=== PATIENT | male | born 1945 ===

== ENCOUNTER 2018-06-06 08:50 | Day surgery (SDC) | payer MEDICARE, BC ==
[~2018-06-06 08:50] MED LIST: Acetaminophen 325 MG Tab PO PRN; Cataract Ophth Solution EYELF ONE; Moxifloxacin 0.5% Ophth Soln 3 ML Bottle EYELF ONE; Ondansetron 4 MG/2 ML SDV IVPUSH PRN; Phenylephrine 10% Ophth Soln 5 ML Bot EYELF ONE; Phenylephrine 10% Ophth Soln 5 ML Bot EYELF PRN; Povidone-Iodine 5% Sterile Ophth Soln 30 ML Bottle EYELF ONE; Proparacaine 0.5% Ophth Soln 15 ML Bottle EYELF ONE; Sodium Chloride 0.9% 10 ML Syringe FLUSH PRN; Timolol Maleate 0.5% Ophth Soln 5 ML Bottle EYELF ONE
[2018-06-06] MEDS ORDERED: Midazolam 1 MG/ML 2 ML SDV IV ONE (08:51)
[2018-06-06] MEDS ORDERED: Sodium Chloride 0.9% 10 ML Syringe IV ONE (08:51)
[2018-06-06] MEDS ORDERED: Dexamethasone 4 MG/ML SDV IV ONE (08:51)
[2018-06-06] MEDS ORDERED: Lidocaine 1% 30 ML SDV ONE (09:54)
[2018-06-06] MEDS ORDERED: Tetracaine HCl/PF 0.5% 4 ML Bottle EYELF ONE (09:55)
[2018-06-06] MEDS ORDERED: Povidone-Iodine 5% Sterile Ophth Soln 30 ML Bottle EYELF ONE (09:55)
[2018-06-06] MEDS ORDERED: Diclofenac Sodium 0.1% Ophth Soln 5 ML Bottle EYELF ONE (09:55)
[2018-06-06] MEDS ORDERED: Apraclonidine 0.5% Ophth Soln 5 ML Bot EYELF ONE (09:55)
[2018-06-06] MEDS ORDERED: Dexamethasone/Neomycin/Polymyxin B Ophth Oint 3.5 GM Tube EYELF ONE (09:55)
[2018-06-06] MEDS ORDERED: Vancomycin 500 MG SDV EYELF ONE (09:56)
[2018-06-06] MEDS ORDERED: Balanced Salt Solution Ophth Irrig 500 ML Bottle IOCULAR ONE (09:56)
[2018-06-06] MEDS ORDERED: Chondroitin Sulfate/Hyaluronate Sodium Ophth Inj 0.75 ML Syringe EYELF ONE (09:56)
--- NOTE | 2018-06-06 10:34 | OR ---
DATE: 06/06/2018 PREOPERATIVE DIAGNOSIS: Visually significant mixed cataract, left eye. POSTOPERATIVE DIAGNOSIS: Visually significant mixed cataract, left eye. PROCEDURE: Extracapsular cataract extraction with intraocular lens implant, left eye. ANESTHESIA: Topical/local MAC. COMPLICATIONS: None. INDICATION: Mr. Chaudhari was seen in the clinic. He has complained of blurred vision, difficulty with contrast, difficulty seeing street signs. Examination reveals visually significant mixed, nuclear, and cortical cataract. I explained options, I offered cataract surgery, and I explained risks including the potential for infection, retinal detachment, and loss of vision amongst others. We discussed implant options, and he has requested a toric implant. He understands that he may still require glasses for some activities, especially near work. He voiced an understanding with respect to risks and wished to proceed. OPERATIVE DESCRIPTION: After informed consent was obtained and the risks, benefits, and alternatives were explained, the patient was brought to the operative suite and topical anesthesia was administered. The patient was then prepped and draped in the sterile fashion, and attention was placed on the left eye. A sterile lid speculum was placed into the left eye to allow operative exposure. A full-thickness paracentesis was made in the temporal portion of the operative eye. Preservative-free lidocaine 0.1 mL was injected into the anterior chamber followed by viscoelastic. A full-thickness corneal incision was then made into the anterior chamber. A bent needle cystotome was used to create a small clarisse in the anterior capsule. The capsulorrhexis forceps was then used to create a 360-degree curvilinear capsulorrhexis. The nucleus was then removed using a phacoemulsification handpiece, and the remaining cortical material was then removed with irrigation and aspiration handpiece. Following removal of the cortical material, the capsular bag was then inspected and noted to be free of any holes or tears. Viscoelastic was then injected into the capsular bag, and the intraocular lens was inserted into the capsular bag. Implant was oriented to correspond with preoperative corneal lopez made with the patient in the upright position. The viscoelastic material was then removed from both the anterior and posterior chambers and from behind the IOL. The lens and capsular bag were then reinspected. The IOL was well centered and the capsular bag intact. The wound and paracentesis sites were inspected and hydrated with balanced saline solution. Both were found to be self-sealing. The intraocular pressure was assessed digitally and found to be within normal range. A good red reflex was noted at the completion of the procedure. No complications occurred during the operation. At the completion of the procedure, Maxitrol, Voltaren, and Iopidine drops were placed into the operative eye. A sterile eye shield was placed over the operative eye, and the patient was transported to the postoperative recovery area having tolerated the procedure well. Postoperative instructions were given along with a postoperative appointment. The patient was advised to call with any questions or concerns. [facility] /[id number]
== END 2018-06-06 10:44 | disposition home or self-care (01) ==
LOC: DL.SDS 08:50
PROVIDERS: ATTEND Ophthalmology
DX: H25.812 Combined forms of age-related cataract, left eye (principal); I10 Essential (primary) hypertension; F17.200 Nicotine dependence, unspecified, uncomplicated; E78.5 Hyperlipidemia, unspecified; M19.90 Unspecified osteoarthritis, unspecified site; N40.0 Benign prostatic hyperplasia without lower urinary tract symptoms; Z79.82 Long term (current) use of aspirin; Z79.899 Other long term (current) drug therapy; Z88.8 Allergy status to other drugs, medicaments and biological substances; Z91.048 Other nonmedicinal substance allergy status
CPT/HCPCS: 00142; A9270-GY; J1100; J2001; J2250; J3370; V2787

== ENCOUNTER 2018-06-13 07:27 | Day surgery (SDC) | payer MEDICARE, BC ==
[2018-06-13] MEDS ORDERED: Midazolam 1 MG/ML 2 ML SDV IV ONE (07:28)
[2018-06-13] MEDS ORDERED: Dexamethasone 4 MG/ML SDV IV ONE (07:28)
[2018-06-13] MEDS ORDERED: Sodium Chloride 0.9% 10 ML Syringe IV ONE (07:28)
[2018-06-13] MEDS: Proparacaine 0.5% Ophth Soln 15 ML Bottle EYERT ONE (07:54)
[2018-06-13] MEDS: Moxifloxacin 0.5% Ophth Soln 3 ML Bottle EYERT ONE (07:55)
[2018-06-13] MEDS: Povidone-Iodine 5% Sterile Ophth Soln 30 ML Bottle EYERT ONE ×2 (07:55→08:55)
[2018-06-13] MEDS: Sodium Chloride 0.9% 10 ML Syringe FLUSH PRN (07:56)
[2018-06-13] MEDS: Phenylephrine 10% Ophth Soln 5 ML Bot EYERT ONE (07:57)
[2018-06-13] MEDS: Timolol Maleate 0.5% Ophth Soln 5 ML Bottle EYERT ONE (07:58)
[2018-06-13] MEDS ORDERED: Ondansetron 4 MG/2 ML SDV IVPUSH PRN (08:00)
[2018-06-13] MEDS ORDERED: Phenylephrine 10% Ophth Soln 5 ML Bot EYERT PRN (08:00)
[2018-06-13] MEDS: Cataract Ophth Solution EYERT ONE (08:01)
[2018-06-13] MEDS: Tetracaine HCl/PF 0.5% 4 ML Bottle EYERT ONE (08:54)
[2018-06-13] MEDS: Lidocaine 1% 30 ML SDV ONE (08:55)
[2018-06-13] MEDS: Diclofenac Sodium 0.1% Ophth Soln 5 ML Bottle EYERT ONE (08:55)
[2018-06-13] MEDS: Dexamethasone/Neomycin/Polymyxin B Ophth Oint 3.5 GM Tube EYERT ONE ×2 (08:56)
[2018-06-13] MEDS: Apraclonidine 0.5% Ophth Soln 5 ML Bot EYERT ONE (08:56)
[2018-06-13] MEDS: Chondroitin Sulfate/Hyaluronate Sodium Ophth Inj 0.75 ML Syringe EYERT ONE (08:57)
[2018-06-13] MEDS: Balanced Salt Solution Ophth Irrig 500 ML Bottle IOCULAR ONE (08:57)
[2018-06-13] MEDS: Vancomycin 500 MG SDV EYERT ONE (08:57)
[2018-06-13] MEDS: Acetaminophen 325 MG Tab PO PRN (09:26)
--- NOTE | 2018-06-13 15:08 | OR ---
DATE: 06/13/2018 PREOPERATIVE DIAGNOSIS: Visually significant mixed cataract, right eye. POSTOPERATIVE DIAGNOSIS: Visually significant mixed cataract, right eye. PROCEDURE: Extracapsular cataract extraction with intraocular lens implant, right eye. ANESTHESIA: Topical/local MAC. COMPLICATIONS: None. INDICATION: Mr. Chaudhari was seen in the clinic. He has complained of blurred vision, difficulty with near and distance tasks. Difficulty reading. His examination reveals mixed nuclear and cortical cataract. Clinical examination also reveals [id number] astigmatism. I explained options. I offered cataract surgery and I explained risks preoperatively including the potential for infection, retinal detachment, loss of vision, need for additional surgery, amongst others. We discussed implant options. He has requested surgery with a Toric implant. He is comfortable wearing spectacle correction following surgery if necessary. OPERATIVE DESCRIPTION: After informed consent was obtained and the risks, benefits, and alternatives were explained, the patient was brought to the operative suite and topical anesthesia was administered. The patient was then prepped and draped in the sterile fashion and attention was placed on the right eye. A sterile lid speculum was placed into the right eye to allow operative exposure. A full-thickness paracentesis was made in the temporal portion of the operative eye. Preservative-free lidocaine 0.1 mL was injected into the anterior chamber followed by viscoelastic. A full-thickness corneal incision was then made into the anterior chamber. A bent needle cystotome was used to create a small clarisse in the anterior capsule. The capsulorrhexis forceps was then used to create a 360-degree curvilinear capsulorrhexis. The nucleus was then removed using a phacoemulsification handpiece and the remaining cortical material was then removed with irrigation and aspiration handpiece. Following removal of the cortical material, the capsular bag was then inspected and noted to be free of any holes or tears. Viscoelastic was then injected into the capsular bag and the intraocular lens was inserted into the capsular bag. The implant was oriented to correspond with preoperative corneal lopez made with the patient in the upright position. The viscoelastic material was then removed from both the anterior and posterior chambers and from behind the IOL. The lens and capsular bag were then reinspected. The IOL was well centered and the capsular bag intact. The wound and paracentesis sites were inspected and hydrated with balanced saline solution. Both were found to be self-sealing. The intraocular pressure was assessed digitally and found to be within normal range. A good red reflex was noted at the completion of the procedure. No complications occurred during the operation. At the completion of the procedure, Maxitrol, Voltaren, and Iopidine drops were placed into the operative eye. A sterile eye shield was placed over the operative eye and the patient was transported to the postoperative recovery area having tolerated the procedure well. Postoperative instructions were given along with a postoperative appointment. The patient was advised to call with any questions or concerns. [facility] /[id number]
== END 2018-06-13 10:07 | disposition home or self-care (01) ==
LOC: DL.SDS 07:27
PROVIDERS: ATTEND Ophthalmology
DX: H25.811 Combined forms of age-related cataract, right eye (principal); H52.209 Unspecified astigmatism, unspecified eye; E78.5 Hyperlipidemia, unspecified; I10 Essential (primary) hypertension; J18.9 Pneumonia, unspecified organism; M19.012 Primary osteoarthritis, left shoulder; M16.11 Unilateral primary osteoarthritis, right hip; N40.0 Benign prostatic hyperplasia without lower urinary tract symptoms; Z79.82 Long term (current) use of aspirin; Z79.899 Other long term (current) drug therapy; Z88.1 Allergy status to other antibiotic agents; Z88.8 Allergy status to other drugs, medicaments and biological substances; Z91.048 Other nonmedicinal substance allergy status; Z87.891 Personal history of nicotine dependence
CPT/HCPCS: 00142; 66984; A9270; J1100; J2001; J2250; J3370; V2787